=== PATIENT | male | born 1975 | race Caucasian/White ===

== ENCOUNTER 2021-07-07 14:49 | Emergency (ER) | payer OTHER ==
[~2021-07-07] VITALS: Ht 182.9 cm; Wt 97.5 kg
[2021-07-07] MEDS ORDERED: PROAIR HFA8.5 GM INH (16:47)
[2021-07-07] MEDS ORDERED: TESSALON PERLE100 MG PO (16:47)
[2021-07-07] MEDS ORDERED: TUSSIN DM COUG118 M2 PO (16:48)
[2021-07-07 17:05] VITALS: BP 116/80
== END 2021-07-07 17:05 | disposition home or self-care (01) ==
LOC: ER 14:49
PROVIDERS: Physician Assistant
DX: U07.1 COVID-19 (principal); J06.9 Acute upper respiratory infection, unspecified; B19.10 Unspecified viral hepatitis B without hepatic coma